=== PATIENT | male | born 1945 | race Caucasian/White ===

== ENCOUNTER 2016-03-20 18:29 | Inpatient (IN) ==
--- NOTE | 2016-03-20 19:27 | Emergency Department Note ---
Truman Cano Brittany, am scribing for, and in the presence of, Makayla Jones DO 18:53. IRobert Debra, DO, personally performed the services described in this documentation, ascribed by Vicenta Laughlin in my presence, and it is both accurate and complete [phone] . Arrival - Arrival Chief Complaint: Shortness of Breath ED Nursing Triage Note: family called for sob. pt is unable to answer questions. Mode of Arrival: Stretcher Limitations: No Limitations Source: Patient, Family, RN Notes Reviewed - History of Present Illness HPI Narrative: Patient is a 70 y/o white male presenting to the ED by EMS with c/o SOB. Per triage note, family called EMS because patient had increased SOB. At time of history and physical patient does not respond to verbal stimuli and is nonverbal , but he does respond to painful stimuli. Patient smells of both urinary and fecal incontinence. History is limited due to patient's current mental status. There is no family member present to provide further history of patient's current situation at this time. Patient has a past medical history of HTN, Anxiety Disorders, Thyroid Disorders, Lung CA, Aspiration Pneumonia, COPD, GERD , Cholecystectomy. Onset (ago): day(s) Consistency: constant Severity: mild Severity scale (1-10): 5 Allergies/Adverse Reactions: Allergies Allergy/AdvReac Type Severity Reaction Status Date / Time No Known Allergies Allergy Verified 07/09/14 07:31 Home Medications: Home Medications Medication Instructions Recorded Confirmed Type Alprazolam [Xanax] 1 mg PO TID 07/08/14 03/20/16 History Citalopram [CeleXA] 40 mg PO DAILY 07/08/14 03/20/16 History Donepezil [Aricept] 10 mg PO BEDTIME 07/08/14 03/20/16 History Levothyroxine Tab [Synthroid Tab] 150 mcg PO DAILY@0700 07/08/14 03/20/16 History Oxycodone HCl/Acetaminophen 1 each PO BID 07/08/14 03/20/16 History [Oxycodone-Acetaminophen 10-325] Potassium Chloride 20 meq PO DAILY 07/08/14 03/20/16 History Trazodone HCl 100 mg PO QPM 07/08/14 03/20/16 History Albuterol Inhaler [Proventil 2 puff INH Q6H #1 inhaler 07/11/14 03/20/16 Rx Inhaler] Quetiapine Fumarate 150 mg PO BEDTIME 04/19/15 03/20/16 History Lisinopril [Prinivil] 10 mg PO BID #60 tablet 04/22/15 03/20/16 Rx Metoprolol Tartrate Tab [Lopressor 25 mg PO BID #60 tablet 04/22/15 03/20/16 Rx Tab] amLODIPine [Norvasc] 10 mg PO DAILY #30 tablet 04/22/15 03/20/16 Rx Review of System - Review of System ROS unobtainable: due to mental status 12 point system: reviewed and no additional remarkable complaints except as stated - Review of System Respiratory: Present: respiratory distress Medical,Surgical,& Family Hx - Medical History Cardio: History of: Hypertension Psychological: History of: Anxiety Disorders Endocrine: History of: Thyroid Disorder No history of: Diabetes Mellitus (NIDDM) Respiratory: History of: COPD, Lung Cancer, Respiratory Problems (recent hospitalization for aspiration pneumonia) Gastrointestinal: History of: GERD - Surgical History Abdominal Surgeries: Surgical HX of: Cholecystectomy (2014) - Family History Family History: Reports;: Family Cancer, Family Diabetes, Family Hypertension - Social History Smoking Status: Former smoker Frequency of Alcohol Use: None Type of Drug Use: None Exam Vital Signs: Vital Signs Temperature 97.3 F L 03/20/16 18:37 Pulse Rate 92 H 03/20/16 18:37 Respiratory Rate 24 03/20/16 18:44 Blood Pressure 159/83 03/20/16 18:37 O2 Sat by Pulse Oximetry 93 L 03/20/16 18:37 - General Exam limited due to: ALOC General appearance: in no apparent distress, lethargic, other (patient is nonverbal and does not respond to verbal stimuli but, responds to painful stimuli; smells of urinary and fecal incontinence) - Head Head exam: Present: atraumatic, normocephalic - Eye Eye exam: Present: PERRL, EOMI - ENT ENT exam: Present: mucous membranes moist, TM's normal bilaterally - Neck Neck exam: Present: trachea midline. Absent: tenderness - Chest Chest inspection: Present: symmetric chest wall rise. Absent: tenderness - Respiratory Respiratory exam: Present: rales (throughout), rhonchi (bilaterally), wheezes ( expiratory). Absent: normal lung sounds bilaterally - Cardiovascular Cardiovascular exam: Present: regular rate, normal rhythm, normal heart sounds. Absent: murmur, rubs, gallop - Abdominal Exam Abdominal exam: Present: soft, normal bowel sounds. Absent: distention, tenderness - Extremities Exam Extremities exam: Absent: tenderness - Back Exam Back exam: Absent: tenderness - Neurological Exam Neurological exam: Present: CN II-XII intact. Absent: alert, oriented X3 ( patient is nonverbal, does not respond to verbal stimuli, but does respond to painful stimuli), motor sensory deficit - Skin Skin exam: Present: warm, dry, intact, normal color Course Course Narrative: spoke with DR Nevarez who will accept pt with dx of pneumonia. pts family would also like for Dr Long to be consulted re his pancreatic ca . Results - Labs CBC & BMP: 03/20/16 20:23 03/20/16 20:23 Lab Results: I have reviewed the patients labs Labs: Laboratory Tests 03/20/16 20:23 Urine Color Selina Urine Appearance Slightly hazy Urine pH 5.0 Ur Specific Stirling 1.028 Urine Protein 100 Urine Glucose (UA) Negative Urine Ketones Negative Urine Blood Moderate Urine Nitrate Negative Urine Bilirubin Negative Urine Urobilinogen 2.0 H Urine Leukocytes Negative Urine RBC 42 Urine WBC 8 Ur Squamous Epith Cells Occasional Urine Bacteria Occasional Hyaline Casts 6 Urine Mucus Occasional Laboratory Tests 03/20/16 20:23 WBC 16.3 H RBC 4.18 Hgb 12.0 L Hct 39.3 L MCV 94.0 MCH 29 MCHC 30.5 L RDW 13.7 Plt Count 187 MPV 8.6 L Neut % (Auto) 88.8 H Lymph % (Auto) 5.0 L [place] % (Auto) 4.3 Eos % (Auto) 0.0 Baso % (Auto) 0.2 Neut # (Auto) 14.5 H Lymph # (Auto) 0.8 L [place] # (Auto) 0.7 Eos # (Auto) 0.0 Baso # (Auto) 0.0 Immature Gran % 1.7 Nucleated RBC % 0.0 Immature Gran # 0.28 Nucleated RBCs # 0.00 Laboratory Tests 03/20/16 20:23 Sodium 143 Potassium 3.8 Chloride 101 Carbon Dioxide 32 Anion Gap 13.8 BUN 32 H Creatinine 1.80 H GFR Calculation 45 BUN/Creatinine Ratio 17.00 Glucose 133 H Calculated Osmolality 293.0 Calcium 8.7 Total Bilirubin 0.60 AST 14 ALT < 9 L Alkaline Phosphatase 90 Total Creatine Kinase 52 CK-MB (CK-2) 1.1 Troponin I 0.025 Total Protein 6.8 Albumin 2.6 L Globulin 4.2 H Albumin/Globulin Ratio 0.6 L - Diagnostic Findings Procedure: Chest x-ray: report reviewed by me (Cardiomediastinal silhouette appears grossly unchanged. There is chronic coarsening bialteral interstitial prominence which appears progressed. There has been interval increased bibasilar atelectasis/consolidation with small left pleural fluid suggested. Findings may reflect superimposed pneumonia or pulmonary edema upon pulmonary fibrosis. Osseous and surrounding soft tissue structures appear grossly unchanged.), CT: report reviewed by me (head/brain wo contrast: No acute intracranial abnormality demonstrated.) Disposition Clinical Impression: Pneumonia Case discussed with: patient, patient's family Disposition: Still a Patient Condition: Stable Time of Disposition: 21:50
--- NOTE | 2016-03-20 20:22 | CT Report ---
CT head/brain wo con Indication: Altered mental status Comparison: CT brain dated April 17, 2015 Technique: Multiple axial tomographic images of the brain were obtained without use of intravenous contrast. Findings: Midline structures are nondisplaced. There is no acute intracranial hemorrhage or evidence of hydrocephalus. Age-related volume loss present. Mild periventricular and subcortical hypoattenuation noted which is nonspecific but consistent with chronic microvascular ischemic change. Atherosclerotic calcifications present. Paranasal sinuses and mastoid air cells clear. IMPRESSION: No acute intracranial abnormality demonstrated. PROCEDURE INTERPRETED AT [facility] DEPARTMENT OF RADIOLOGY Final Report Signed by: Dr Moses Vaughn
--- NOTE | 2016-03-20 20:29 | XRay Report ---
XR chest 1V portable Indication: Abnormal breath sounds Comparison: Chest x-ray dated January 20, 2016 Technique: Single frontal view of the chest Findings: Cardiomediastinal silhouette appears grossly unchanged. There is chronic coarsening bilateral interstitial prominence which appears progressed. There has been interval increased bibasilar atelectasis/consolidation with small left pleural fluid suggested. Findings may reflect superimposed pneumonia or pulmonary edema upon pulmonary fibrosis. Osseous and surrounding soft tissue structures appear grossly unchanged. IMPRESSION: As above. PROCEDURE INTERPRETED AT [facility] DEPARTMENT OF RADIOLOGY Final Report Signed by: Dr Moses Vaughn
[2016-03-20 20:35] LABS: Apearance,Urine Slightly Hazy (Clear); Bacteria,Urine Occasional /HPF (Few); Bilirubin,Urine Negative (Negative); Blood, Urine Moderate mg/dL (Negative); Glucose,Urine (UA) Negative (Negative); Hyaline Casts,Urine 6 /LPF (0-3); Ketones,Urine Negative (Negative); Mucus,Urine Occasional /LPF (Occasional); Nitrite,Urine Negative (Negative); Protein,Urine 100 MG/DL; RBC,Urine 42 /HPF (0-4); Squamous Epithelial Cell,Urine Occasional /HPF (0-10); Urine Color Amber (Yellow); Urine Specific Gravity 1.028 (1.001-1.035); WBC,Urine 8 /HPF (0-6)
[2016-03-20 21:14] LABS: Basophils % 0.2 % (0.0-0.8); Hematocrit 39.3 VOL% (42.0-52.0); Immature Granulocytes % 1.7 %; Immature Granulocytes Absolute 0.28 #; Lymphocytes # 0.8 10*3/uL (1.4-4.0); Mean Corpuscular HGB Conc 30.5 GM/DL (32-36); Mean Corpuscular Hemoglobin 29 PG (27-34); Mean Platelet Volume 8.6 FL (9.6-12.0); Monocytes # 0.7 10*3/uL (0.11-0.8); Monocytes % 4.3 % (1.7-12.7); Neutrophils # 14.5 10*3/uL (1.4-7.4); Neutrophils % 88.8 % (38.7-73.9); Platelet Count 187 10*3/uL (130-400); Red Blood Count 4.18 10*6/uL (3.8-5.5); Red Cell Distribution Width 13.7 % (9.3-17.3); White Blood Count 16.3 10*3/uL (4.5-13.71)
[2016-03-20] MEDS ORDERED: cefTRIAXone 1,000 MG in SODIUM CHLORIDE 0.9% 100 ML IV STA (21:35)
[2016-03-20 21:37] LABS: Alanine Aminotransferase < 9 U/L (16-61); Albumin 2.6 G/DL (3.4-5.0); Alkaline Phosphatase 90 U/L (45-117); Aspartate Amino Transferase 14 U/L (0-37); Blood Urea Nitrogen 32 MG/DL (7-18); Calcium 8.7 MG/DL (8.5-10.1); Glucose 133 MG/DL (74-106); Potassium 3.8 MMOL/L (3.5-5.1); Sodium 143 MMOL/L (136-145); Total Protein 6.8 G/DL (6.4-8.3); Troponin I Only 0.025 NG/ML (0.00-0.045)
[2016-03-20] MEDS ORDERED: cefTRIAXone 1,000 MG VIAL ONE (21:54)
[2016-03-20] MEDS ORDERED: ONDANSETRON 4 MG/2 ML VIAL IV PRN (22:35)
[2016-03-20] MEDS ORDERED: ACETAMINOPHEN 325 MG TABLET PO PRN (22:35)
[2016-03-20] MEDS ORDERED: BISACODYL 5 MG TABLET PO PRN (22:35)
--- NOTE | 2016-03-20 22:54 | Hospitalist History & Physical ---
Assessment and Plan - Time spent with patient Time spent with patient: Greater than 30 minutes (1) Bacterial pneumonia Status: Acute Current Visit: Yes (2) COPD with acute exacerbation Status: Acute Current Visit: Yes (3) Drug-induced encephalopathy Status: Acute Current Visit: Yes (4) Acute renal failure due to tubular necrosis Status: Acute Current Visit: Yes (5) Pancreatic mass Status: Acute Current Visit: Yes (6) Chronic pain Status: Acute Current Visit: Yes (7) Opioid dependence Status: Acute Assessment and plan: Plan: 03/20: Admit for IV antibiotics for pneumonia, blood and sputum cultures. Supplemental oxygen, DuoNeb's, steroids. We'll consult pain management due to the opioid dependence and perhaps misuse of his fentanyl patches resulting in extreme somnolence. Gentle hydration, recheck renal function in the morning. Current Visit: Yes History of Present Illness Chief complaint: today's a productive cough and subjective fever History of present illness: Mr. Hogan is a 70 year old male with history of piriform sinus cancer, recent discovery of pancreatic abdominal mass of which biopsy was inconclusive. Apparently he is scheduled for a CT-guided needle biopsy, however the patient's is considering canceling this for some reason. The problem tonight because of 2 days of progressively worsening productive cough and shortness of breath. He also likely had drug-induced encephalopathy due to opiates as he was wearing a fentanyl patch and required Narcan due to extreme somnolence. He is now awake at the bedside, appears fairly comfortable on 2 L nasal cannula. He denies nausea or vomiting, he does have chronic abdominal pain according to the who answers most of these questions. She states the patient has dementia, the patient is a bit of a poor historian. His symptoms have become constant and worsening the last 2 days. Home Medications Medication Instructions Recorded Confirmed Type Alprazolam [Xanax] 1 mg PO TID 07/08/14 03/21/16 History Citalopram [CeleXA] 40 mg PO DAILY 07/08/14 03/21/16 History Donepezil [Aricept] 10 mg PO BEDTIME 07/08/14 03/21/16 History Albuterol Inhaler [Proventil 2 puff INH Q6H #1 inhaler 07/11/14 03/21/16 Rx Inhaler] Levothyroxine Tab [Synthroid Tab] 112 mcg PO DAILY@0700 03/21/16 03/21/16 History Oxycodone HCl/Acetaminophen 1 each PO BID 03/21/16 03/21/16 History [Percocet 10-325 mg Tablet] amLODIPine [Norvasc] 5 mg PO DAILY 03/21/16 03/21/16 History fentaNYL [Fentanyl 100 mcg/hr 1 patch TRANSDERM Q3DAY 03/21/16 03/21/16 History Patch] Allergies Allergy/AdvReac Type Severity Reaction Status Date / Time No Known Allergies Allergy Verified 07/09/14 07:31 Medical,Surgical,& Family Hx - Medical History Cardio: History of: Hypertension Psychological: History of: Anxiety Disorders HEENT: History of: HEENT Problems (piriform sinus cancer history) Endocrine: History of: Thyroid Disorder No history of: Diabetes Mellitus (NIDDM) Respiratory: History of: COPD, Lung Cancer, Respiratory Problems (recent hospitalization for aspiration pneumonia) Gastrointestinal: History of: GERD Other: History of: Miscellaneous Medical Problems (chronic pain, opioid dependence) - Surgical History Abdominal Surgeries: Surgical HX of: Cholecystectomy (2014) - Family History Family History: Reports;: Family Cancer, Family Diabetes, Family Hypertension - Social History Smoking Status: Former smoker Frequency of Alcohol Use: None Type of Drug Use: None Marital Status: Lives With:: Spouse Functional capacity: independent ambulation Review of systems: A 12 point review of systems is negative except as specified in the HPI Exam - Constitutional Vitals: Period Temp Pulse Resp BP Sys/Carty Pulse Ox Last 24 Hr 97.3 F-97.3 F 92-92 24-24 159-159/83-83 93 Exam: EXAM: CONSTITUTIONAL: Thin, non toxic, NAD HEENT: NC, AT, OP benign, MARK, EOMI CV: RRR no m/g/r RESP: Coarse bilaterally with diffuse rhonchi, prolonged expiratory phase GI: abd soft, NT, ND, +bowel sounds INTEGUMENTARY: no lesions or rash EXTREMITIES: no c/c/e NEURO: no focal deficits PSYCH: Drowsy but arousable, disoriented Results - Labs CBC & BMP: 03/20/16 20:23 03/20/16 20:23 Lab Results: I have reviewed the past 24 hour labs - Diagnostic Findings Procedure: Chest x-ray: image reviewed by me, report reviewed by me, CT: image reviewed by me, report reviewed by me
[2016-03-20] MEDS ORDERED: SODIUM CHLORIDE 0.45% 1,000 ML IV SCH (23:00)
[2016-03-21] MEDS: methylPREDNISolone SOD SUC 40 MG/1 ML VIAL IV SCH ×3 (00:19→16:24)
[2016-03-21] MEDS: ENOXAPARIN 40 MG/0.4 ML SYRINGE SUBCUT SCH ×2 (00:19→20:54)
[2016-03-21] MEDS: PIPERACILLIN/TAZOBACTAM 3,375 MG in SODIUM CHLORIDE 0.9% 100 ML IV SCH ×3 (00:19→16:24)
[2016-03-21] MEDS: DONEPEZIL 10 MG TABLET PO SCH ×2 (00:19→20:54)
[2016-03-21] MEDS: ALPRAZolam 0.5 MG TABLET PO PRN ×2 (00:40→21:00)
[2016-03-21] MEDS: ALBUTEROL/IPRATROPIUM 3 ML NEB RESP TX SCH ×6 (00:47→20:40)
[2016-03-21 05:12] LABS: Basophils % 0.2 % (0.0-0.8); Hematocrit 35.2 VOL% (42.0-52.0); Hemoglobin 10.8 GM/DL (14.0-18.0); Immature Granulocytes % 1.7 %; Lymphocytes # 0.9 10*3/uL (1.4-4.0); Lymphocytes % 5.4 % (21.2-54.2); Mean Corpuscular HGB Conc 30.7 GM/DL (32-36); Mean Corpuscular Hemoglobin 29 PG (27-34); Mean Corpuscular Volume 92.9 FL (87-102); Mean Platelet Volume 8.9 FL (9.6-12.0); Monocytes # 0.2 10*3/uL (0.11-0.8); Monocytes % 1.4 % (1.7-12.7); Neutrophils # 15.9 10*3/uL (1.4-7.4); Neutrophils % 91.3 % (38.7-73.9); Platelet Count 197 10*3/uL (130-400); Red Blood Count 3.79 10*6/uL (3.8-5.5); Red Cell Distribution Width 13.6 % (9.3-17.3); White Blood Count 17.4 10*3/uL (4.5-13.71)
[2016-03-21 05:44] LABS: Band Neutrophils 6 % (0-10); Hypochromasia 1+; Lymphocytes 3 % (20-55); Metamyelocytes 1 %; Platelet Estimate Adequate; Segmented Neutrophils 89 % (50-85); Total Cells Counted 100
[2016-03-21 06:08] LABS: Alanine Aminotransferase < 9 U/L (16-61); Albumin 2.4 G/DL (3.4-5.0); Alkaline Phosphatase 84 U/L (45-117); Aspartate Amino Transferase 13 U/L (0-37); Blood Urea Nitrogen 29 MG/DL (7-18); Calcium 8.5 MG/DL (8.5-10.1); Glucose 148 MG/DL (74-106); Magnesium 2.4 MG/DL (1.8-2.4); Osmolality,Calculated 289.3 MOS/KG (273-304); Potassium 4.1 MMOL/L (3.5-5.1); Sodium 141 MMOL/L (136-145); Total Protein 6.2 G/DL (6.4-8.3)
--- NOTE | 2016-03-21 06:42 | Pain Management Consult Note ---
Assessment and Plan (1) Chronic pain Status: Acute Assessment and plan: I agree with the current plan to stop the Duragesic patch and use Percocet twice a day when necessary Current Visit: Yes History of Present Illness Chief complaint: patient with pneumonia History of present illness: Mr. Hogan is a 70 year old male Patient well known to me have seen him in the pain clinic in [place]. He' s been treated for possible cancer which is being investigated. He is on the Duragesic patch and also takes Percocet when necessary. I have had multiple times in which I have warned the patient and his family not to over take the medications his consistently gives him too much Percocet against my advice. Apparently yesterday he seemed to be oversedated and had to be given Narcan. The Duragesic patch has been stopped and I agree with that and I agreed to use the Percocet only as needed Home Medications Medication Instructions Recorded Confirmed Type Alprazolam [Xanax] 1 mg PO TID 07/08/14 03/21/16 History Citalopram [CeleXA] 40 mg PO DAILY 07/08/14 03/21/16 History Donepezil [Aricept] 10 mg PO BEDTIME 07/08/14 03/21/16 History Albuterol Inhaler [Proventil 2 puff INH Q6H #1 inhaler 07/11/14 03/21/16 Rx Inhaler] Levothyroxine Tab [Synthroid Tab] 112 mcg PO DAILY@0700 03/21/16 03/21/16 History Oxycodone HCl/Acetaminophen 1 each PO BID 03/21/16 03/21/16 History [Percocet 10-325 mg Tablet] amLODIPine [Norvasc] 5 mg PO DAILY 03/21/16 03/21/16 History fentaNYL [Fentanyl 100 mcg/hr 1 patch TRANSDERM Q3DAY 03/21/16 03/21/16 History Patch] Allergies Allergy/AdvReac Type Severity Reaction Status Date / Time No Known Allergies Allergy Verified 07/09/14 07:31 Medical,Surgical,& Family Hx - Medical History Cardio: History of: Hypertension Psychological: History of: Anxiety Disorders HEENT: History of: HEENT Problems (piriform sinus cancer history) Endocrine: History of: Thyroid Disorder No history of: Diabetes Mellitus (NIDDM) Respiratory: History of: COPD, Lung Cancer, Respiratory Problems (recent hospitalization for aspiration pneumonia) Gastrointestinal: History of: GERD Other: History of: Miscellaneous Medical Problems (chronic pain, opioid dependence) - Surgical History Abdominal Surgeries: Surgical HX of: Cholecystectomy (2015) - Family History Family History: Reports;: Family Cancer, Family Diabetes, Family Hypertension - Social History Smoking Status: Former smoker Frequency of Alcohol Use: None Type of Drug Use: None 12 point system: reviewed and no additional remarkable complaints except as stated - Constitutional Constitutional: Present: daytime sleepiness - EENT Nose, mouth and throat: Present: hoarseness - Cardiovascular Cardiovascular: Present: dyspnea - Respiratory Respiratory: Present: cough, dyspnea - Gastrointestinal Gastrointestinal: Present: abdominal pain - Genitourinary Genitourinary: Present: difficulty urinating - Musculoskeletal Musculoskeletal: Present: abnormal gait - Neurological Neurological: Present: abnormal speech - Endocrine Endocrine: Present: fatigue Hematologic/Lymphatic: Present: as per HPI Exam - Constitutional Vitals: Period Temp Pulse Resp BP Sys/Carty Pulse Ox Last 24 Hr 97.5 F-98 F 65-85 16-20 153-160/69-83 94-98 General appearance: no acute distress - Head Head exam: Present: normal inspection - Eye Eye exam: Present: EOMI Pupils: Present: MARK - ENT ENT exam: Present: normal exam Ear exam: Present: [place] Mouth exam: Present: normal external inspection - Neck Neck exam: Present: normal inspection - Respiratory Respiratory exam: Present: accessory muscle use, chest wall tenderness, decreased breath sounds - Cardiovascular Cardiovascular exam: Present: RRR - GI/Abdominal GI/Abdominal exam: Present: soft - Extremities Exam Extremities exam: Present: normal inspection - Back Exam Back exam: Present: vertebral tenderness - Neurological Exam Neurological exam: Present: abnormal gait Speech: Present: abnormal - Skin Skin exam: Present: dry Results - Labs CBC & BMP: 03/21/16 04:36 03/21/16 04:36 Lab Results: I have reviewed the past 24 hour labs Specialty Discharge - Follow Up or Referrals - Discharge Medications No Action Donepezil [Aricept] 10 mg PO BEDTIME Citalopram [CeleXA] 40 mg PO DAILY Alprazolam [Xanax] 1 mg PO TID Albuterol Inhaler [Proventil Inhaler] 2 puff INH Q6H #1 inhaler fentaNYL [Fentanyl 100 mcg/hr Patch] 1 patch TRANSDERM Q3DAY Levothyroxine Tab [Synthroid Tab] 112 mcg PO DAILY@0700 Oxycodone HCl/Acetaminophen [Percocet 10-325 mg Tablet] 1 each PO BID amLODIPine [Norvasc] 5 mg PO DAILY
[2016-03-21] MEDS: CITALOPRAM 40 MG TABLET PO SCH (08:37)
[2016-03-21] MEDS: PANTOPRAZOLE 40 MG TABLET PO SCH (08:38)
[2016-03-21] MEDS: oxyCODONE/ACETAMINOPHEN 5-325 MG TABLET PO SCH ×2 (08:38→20:54)
[2016-03-21] MEDS: LEVOTHYROXINE 150 MCG TABLET PO SCH (08:38)
--- NOTE | 2016-03-21 08:43 | Physician Query Form ---
CLICK EDIT DOCUMENT TO SELECT QUERY ANSWER --> OK --> SIGN Carolyne Kim RN, CCDS Certified Clinical Veterans Employment Representative W) [phone] (f) [phone] [email or web address]: Make your selection(s) from the choices in EACH section by typing an "x" and enter comments in the comment section. Please use your independent medical judgment in providing your response. This request does not imply that any particular answer is desired or expected. CLINICAL INDICATORS: (Providers should not edit this section) The medical record indicates that the patient was admitted with Pneumonia, Oversedated on medications, WBC of 16.3#, RR of 24#, Sat's of 93%, "patient is nonverbal and does not respond to verbal stimuli but", "smells of urinary and fecal incontinence", "rales (throughout), rhonchi (bilaterally), wheezes ( expiratory)" and the patient is on Piperacillin. Community Acquired and Healthcare Acquired are both unspecified terms and require further specificity. Based on the above, could you please clarify further specificity regarding the type of pneumonia you are treating (even if specific organism may not be known) ? (x ) Aspiration pneumonia ( ) Gram negative pneumonia ( ) Gram positive pneumonia ( ) Bacterial pneumonia due to, please specify organism (if known): ( ) Pneumonia with Influenza ( ) Viral pneumonia ( ) Post procedural ( ) HIV associated pneumonia ( ) Radiation Pneumonitis ( ) Pneumonia due to, please specify: ( ) Clinically unable to determine ( ) Other, please specify: COMMENTS: Use of terms such as suspected, likely, or probable (associated with a specific diagnosis that is being evaluated, monitored, or treated as if it exists) are acceptable and can be restated in the discharge summary if not ruled out. MTDD
[2016-03-21 10:48] LABS: INR 1.2; PT Patient Result 12.7 SECS; Partial Thromboplastin Time 31.1 SECS (0-40)
--- NOTE | 2016-03-21 10:58 | Hospitalist Progress Note ---
Assessment and Plan - Time spent with patient Time spent with patient: Greater than 30 minutes (due to assessment, plan and documentation) (1) Pneumonia Status: Acute Assessment and plan: We will continue his IV antibiotics, supplemental O2 and Duonebs. Dr. Lovelace has agreed with stopping his Duragesic patches and limit his PO percocets Current Visit: Yes Hospitalist: Subjective Interval history: Mr. Hogan is awake and alert this morning and states he is feeling well. He states he feels better today than he has for a while. His is not present today. He states he is still having frequent productive coughing but that it feels better after his treatments and seems to be coming up more. His lungs are still coarse bilat. Noted greenish brown sputum production with cough. Pain management has seen him this morning. He denies abdominal pain today. Exam - Constitutional Vitals: Period Temp Pulse Resp BP Sys/Carty Pulse Ox Last 24 Hr 97.5 F-98.2 F 53-85 16-20 153-160/69-83 93-98 General appearance: no acute distress - Head Head exam: Present: normal inspection, normocephalic - Eye Eye exam: Present: EOMI. Absent: scleral icterus Pupils: Present: MARK, normal accommodation - ENT ENT exam: Present: normal exam, normal oropharynx - Neck Neck exam: Present: normal inspection. Absent: lymphadenopathy - Respiratory Respiratory exam: Present: decreased breath sounds, wheezes (tight high pitched wheeze on ins and exp), other (coarse, wet bilat, worse right lung than left) - Cardiovascular Cardiovascular exam: Present: regular rate and rhythm. Absent: tachycardia - GI/Abdominal GI/Abdominal exam: Present: normal bowel sounds, soft. Absent: tenderness - Extremities Exam Extremities exam: Present: normal inspection, full ROM. Absent: edema - Back Exam Back exam: Present: normal inspection. Absent: muscle spasm - Neurological Exam Neurological exam: Present: alert, oriented X3 - Psychiatric Psychiatric exam: Present: normal affect, normal mood - Skin Skin exam: Present: warm, dry, other (pale) Results - Labs CBC & BMP: 03/21/16 04:36 03/21/16 04:36 Lab Results: I have reviewed the past 24 hour labs Specialty Discharge - Follow Up or Referrals - Discharge Medications No Action Donepezil [Aricept] 10 mg PO BEDTIME Citalopram [CeleXA] 40 mg PO DAILY Alprazolam [Xanax] 1 mg PO TID Albuterol Inhaler [Proventil Inhaler] 2 puff INH Q6H #1 inhaler fentaNYL [Fentanyl 100 mcg/hr Patch] 1 patch TRANSDERM Q3DAY Levothyroxine Tab [Synthroid Tab] 112 mcg PO DAILY@0700 Oxycodone HCl/Acetaminophen [Percocet 10-325 mg Tablet] 1 each PO BID amLODIPine [Norvasc] 5 mg PO DAILY
[2016-03-21] MEDS ORDERED: QUEtiapine 100 MG TABLET PO SCH (21:00)
[2016-03-21] MEDS: MORPHINE 2 MG/1 ML SYRINGE IV PRN (23:54)
[2016-03-22] MEDS: ALBUTEROL/IPRATROPIUM 3 ML NEB RESP TX SCH ×7 (00:13→23:24)
[2016-03-22] MEDS: PIPERACILLIN/TAZOBACTAM 3,375 MG in SODIUM CHLORIDE 0.9% 100 ML IV SCH ×3 (00:38→17:39)
[2016-03-22] MEDS: methylPREDNISolone SOD SUC 40 MG/1 ML VIAL IV SCH ×3 (00:38→17:39)
[2016-03-22] MEDS: MORPHINE 2 MG/1 ML SYRINGE IV PRN ×3 (04:28→17:39)
--- NOTE | 2016-03-22 06:04 | Pain Management Progress Note ---
Assessment and Plan (1) Chronic pain Status: Acute Assessment and plan: I agree with the current plan to stop the Duragesic patch and use Percocet twice a day when necessary 03/22 increase Percocet to 3 times a day Current Visit: Yes Pain - Subjective Interval history: Patient is more awake and alert today. The patient's is insistent that he needs more Percocet. He is also been receiving IV morphine. Have explained to her that I have warned her multiple times about not over sedating him but she does not seem to understand that issue this was discussed in detail in the presence of his nurse. I will increase the Percocet to 3 times a day Exam - Constitutional Vitals: Period Temp Pulse Resp BP Sys/Carty Pulse Ox Last 24 Hr 97.0 F-98.2 F 50-94 16-20 120-159/60-82 91-99 General appearance: no acute distress - Head Head exam: Present: normal inspection - Eye Eye exam: Present: EOMI Pupils: Present: MARK - ENT ENT exam: Present: normal exam Ear exam: Present: [place] Mouth exam: Present: normal external inspection - Neck Neck exam: Present: normal inspection - Respiratory Respiratory exam: Present: decreased breath sounds - GI/Abdominal GI/Abdominal exam: Present: normal bowel sounds - Back Exam Back exam: Present: vertebral tenderness - Neurological Exam Speech: Present: abnormal - Skin Skin exam: Present: normal color Results - Labs CBC & BMP: 03/21/16 04:36 03/21/16 04:36 Lab Results: I have reviewed the past 24 hour labs Specialty Discharge - Follow Up or Referrals - Discharge Medications No Action Donepezil [Aricept] 10 mg PO BEDTIME Citalopram [CeleXA] 40 mg PO DAILY Alprazolam [Xanax] 1 mg PO TID Albuterol Inhaler [Proventil Inhaler] 2 puff INH Q6H #1 inhaler fentaNYL [Fentanyl 100 mcg/hr Patch] 1 patch TRANSDERM Q3DAY Levothyroxine Tab [Synthroid Tab] 112 mcg PO DAILY@0700 Oxycodone HCl/Acetaminophen [Percocet 10-325 mg Tablet] 1 each PO BID amLODIPine [Norvasc] 5 mg PO DAILY
[2016-03-22 06:20] LABS: Basophils % 0.1 % (0.0-0.8); Hematocrit 37.3 VOL% (42.0-52.0); Immature Granulocytes % 2.8 %; Immature Granulocytes Absolute 0.36 #; Lymphocytes # 0.8 10*3/uL (1.4-4.0); Mean Corpuscular HGB Conc 32.2 GM/DL (32-36); Mean Corpuscular Hemoglobin 29 PG (27-34); Mean Corpuscular Volume 89.2 FL (87-102); Mean Platelet Volume 8.9 FL (9.6-12.0); Monocytes # 0.4 10*3/uL (0.11-0.8); Monocytes % 2.8 % (1.7-12.7); Neutrophils # 11.5 10*3/uL (1.4-7.4); Neutrophils % 88.3 % (38.7-73.9); Platelet Count 195 10*3/uL (130-400); Red Blood Count 4.18 10*6/uL (3.8-5.5); Red Cell Distribution Width 13.4 % (9.3-17.3); White Blood Count 13.1 10*3/uL (4.5-13.71)
[2016-03-22] MEDS: LEVOTHYROXINE 150 MCG TABLET PO SCH (06:34)
[2016-03-22] MEDS: NIFEdipine 10 MG CAPSULE PO PRN ×2 (06:37→23:54)
--- NOTE | 2016-03-22 06:53 | Pulmonology Consult Note ---
Assessment and Plan (1) COPD with acute exacerbation Status: Acute Assessment and plan: Patient is on antibiotics corticosteroids and bronchodilators. He has a poor cough. Current Visit: No (2) Aspiration pneumonia Status: Resolved Assessment and plan: It is likely that he has aspiration pneumonia. We'll plan bronchoscopy later this morning. Current Visit: No (3) Drug-induced encephalopathy Status: Acute Assessment and plan: Due to opiates. These are being held. His symptoms improved when given Narcan earlier. Current Visit: Yes (4) Pancreatic mass Status: Acute Assessment and plan: This remains to be worked up. Suspicious for carcinoma. Current Visit: Yes (5) Opioid dependence Status: Acute Assessment and plan: Defer to primary service. Current Visit: Yes History of Present Illness Chief complaint: cough congestion shortness of breath History of present illness: Mr. Hogan is a 70 year old male who was admitted 2 days ago with a cough and shortness of breath. He has a history of encephalopathy probably related to pain medications. He was found to have pneumonia and was felt to be likely due to aspiration. He has retained secretions and has not been able to cough them up. 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 I was asked to see him because of persistent cough and inability to cough up phlegm. I actually saw him yesterday evening. He also has a history of COPD and previous lung cancer. Home Medications Medication Instructions Recorded Confirmed Type Alprazolam [Xanax] 1 mg PO TID 07/08/14 03/21/16 History Citalopram [CeleXA] 40 mg PO DAILY 07/08/14 03/21/16 History Donepezil [Aricept] 10 mg PO BEDTIME 07/08/14 03/21/16 History Albuterol Inhaler [Proventil 2 puff INH Q6H #1 inhaler 07/11/14 03/21/16 Rx Inhaler] Levothyroxine Tab [Synthroid Tab] 112 mcg PO DAILY@0700 03/21/16 03/21/16 History Oxycodone HCl/Acetaminophen 1 each PO BID 03/21/16 03/21/16 History [Percocet 10-325 mg Tablet] amLODIPine [Norvasc] 5 mg PO DAILY 03/21/16 03/21/16 History fentaNYL [Fentanyl 100 mcg/hr 1 patch TRANSDERM Q3DAY 03/21/16 03/21/16 History Patch] Allergies Allergy/AdvReac Type Severity Reaction Status Date / Time No Known Allergies Allergy Verified 07/09/14 07:31 12 point system: reviewed and no additional remarkable complaints except as stated - Constitutional Constitutional: Present: fever(s), lethargy, weakness - Cardiovascular Cardiovascular: Present: dyspnea - Respiratory Respiratory: Present: cough, dyspnea, wheezing, change in phlegm color Exam (Pulmonay) H&P - Constitutional Vitals: Period Temp Pulse Resp BP Sys/Carty Pulse Ox Last 24 Hr 97.0 F-98.2 F 50-94 16-20 120-225/60-99 91-99 Exam: Patient is responsive although somewhat sleepy. Vital signs normal. HEENT: Pupils react to light. Throat clear. Neck supple no bruits. Chest reveals some coarse rhonchi bilaterally. Does have prolonged expiratory phase. Few scattered wheezes and rhonchi. Heart rate and rhythm no murmurs or rubs. Abdomen is soft nontender no masses. Bowel sounds present. Extremities no clubbing cyanosis or edema. Calves nontender. Medical,Surgical,& Family Hx - Medical History Cardio: History of: Hypertension Psychological: History of: Anxiety Disorders HEENT: History of: HEENT Problems (piriform sinus cancer history) Endocrine: History of: Thyroid Disorder No history of: Diabetes Mellitus (NIDDM) Respiratory: History of: COPD, Lung Cancer, Respiratory Problems (recent hospitalization for aspiration pneumonia) Gastrointestinal: History of: GERD Other: History of: Miscellaneous Medical Problems (chronic pain, opioid dependence) - Surgical History Abdominal Surgeries: Surgical HX of: Cholecystectomy (2014) - Family History Family History: Reports;: Family Cancer, Family Diabetes, Family Hypertension - Social History Smoking Status: Former smoker Frequency of Alcohol Use: None Type of Drug Use: None Results - Labs CBC & BMP: 03/22/16 05:45 03/21/16 04:36 Lab Results: I have reviewed the past 24 hour labs - Diagnostic Findings Procedure: Chest x-ray: image reviewed by me (chest x-ray from 03/20/2016 shows diffuse infiltrates primarily on the right side. This looks a little worse than his previous film about 2 months back.) Specialty Discharge - Follow Up or Referrals - Discharge Medications No Action Donepezil [Aricept] 10 mg PO BEDTIME Citalopram [CeleXA] 40 mg PO DAILY Alprazolam [Xanax] 1 mg PO TID Albuterol Inhaler [Proventil Inhaler] 2 puff INH Q6H #1 inhaler fentaNYL [Fentanyl 100 mcg/hr Patch] 1 patch TRANSDERM Q3DAY Levothyroxine Tab [Synthroid Tab] 112 mcg PO DAILY@0700 Oxycodone HCl/Acetaminophen [Percocet 10-325 mg Tablet] 1 each PO BID amLODIPine [Norvasc] 5 mg PO DAILY
[2016-03-22 06:54] LABS: Alanine Aminotransferase < 9 U/L (16-61); Albumin 2.3 G/DL (3.4-5.0); Alkaline Phosphatase 82 U/L (45-117); Aspartate Amino Transferase 13 U/L (0-37); Blood Urea Nitrogen 25 MG/DL (7-18); Calcium 8.8 MG/DL (8.5-10.1); Glucose 193 MG/DL (74-106); Magnesium 2.2 MG/DL (1.8-2.4); Osmolality,Calculated 283.7 MOS/KG (273-304); Potassium 3.9 MMOL/L (3.5-5.1); Sodium 138 MMOL/L (136-145); Total Protein 6.5 G/DL (6.4-8.3)
[2016-03-22] MEDS ORDERED: MEPERIDINE 50 MG/1 ML VIAL IM ONE (07:30)
[2016-03-22] MEDS ORDERED: PROMETHAZINE 25 MG/1 ML VIAL IM ONE (07:30)
[2016-03-22] MEDS ORDERED: LIDOCAINE 1% 20 ML VIAL MISC INJ ONE (08:00)
[2016-03-22] MEDS ORDERED: MIDAZOLAM 2 MG/2 ML VIAL IV ONE (08:00)
--- NOTE | 2016-03-22 08:29 | Operative Note ---
Date of procedure: 03/22/16 (fiberoptic bronchoscopy with removal of retained secretions) Pre-op diagnosis: aspiration pneumonia Post-op diagnosis: same (aspiration pneumonia with diffuse erythema and retained secretions. Surgical absence of left upper lobe) Procedure: The patient was given preoperative medication on the floor. He was transported to the bronchoscopy lab. After an appropriate timeout to be sure we were dealing with Misha Hogan, topical anesthesia was applied with Xylocaine in the nose and nasopharynx. 3 L nasal oxygen placed in the left naris. 2 mg of Versed was given intravenously. The fiberoptic bronchoscope was introduced via the right naris. Vocal cords were identified and noted to function normally with phonation. There was diffuse erythema of the larynx. After further topical anesthesia the trachea was entered. The tracheal wall was read throughout. The john was sharp. Both mainstem bronchi were erythematous. There were retained secretions in all 5 lobes. The left upper lobe was noted to be surgically absent so there was just a small amount there. Clips were noted there. Patient has had a previous left upper lobectomy for lung cancer. Welled up secretions were noted in the left lower lobe right lower lobe right middle lobe and right upper lobe. These were irrigated and removed. Cultures were sent as well as cytology. Procedure was tolerated well. Bronchoscope was removed and the patient returned to his room in stable condition. Anesthesia: conscious sedation Surgeon / Physician: Josafat Roberts Estimated blood loss: none Specimens: other (bronchial washings for cultures, AFB, fungi, and cytology. Also photographs.) Condition: stable Disposition: floor Results - Labs CBC & BMP: 03/22/16 05:45 03/22/16 05:45 Discharge Plan - Discharge Medications No Action Donepezil [Aricept] 10 mg PO BEDTIME Citalopram [CeleXA] 40 mg PO DAILY Alprazolam [Xanax] 1 mg PO TID Albuterol Inhaler [Proventil Inhaler] 2 puff INH Q6H #1 inhaler fentaNYL [Fentanyl 100 mcg/hr Patch] 1 patch TRANSDERM Q3DAY Levothyroxine Tab [Synthroid Tab] 112 mcg PO DAILY@0700 Oxycodone HCl/Acetaminophen [Percocet 10-325 mg Tablet] 1 each PO BID amLODIPine [Norvasc] 5 mg PO DAILY - Follow Up or Referral - Forms/Instructions
--- NOTE | 2016-03-22 09:14 | Event Note ---
I discussed the case with patient's . 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 She requested that we get Dr. Long to see the patient. Patient has had a biopsy of his pancreas at [facility] with negative results. Needs further evaluation once he is over this acute pneumonia.
[2016-03-22] MEDS ORDERED: MIDAZOLAM 2 MG/2 ML VIAL ONE (10:22)
[2016-03-22] MEDS: oxyCODONE/ACETAMINOPHEN 5-325 MG TABLET PO SCH ×2 (10:41→21:11)
[2016-03-22] MEDS: CITALOPRAM 40 MG TABLET PO SCH (10:41)
[2016-03-22] MEDS: PANTOPRAZOLE 40 MG TABLET PO SCH (10:41)
[2016-03-22] MEDS: ALPRAZolam 0.5 MG TABLET PO PRN ×2 (10:41→17:39)
--- NOTE | 2016-03-22 16:59 | Hospitalist Progress Note ---
Assessment and Plan (1) Dysphagia causing pulmonary aspiration with swallowing Status: Chronic Assessment and plan: The patient is in the hospital with pneumonia and continues on appropriate antibiotic treatment. It is possible he'll be ready for discharge home in a day or so. Were awaiting for consultation with Dr. Benedict concerning his various malignancies including history of piriform sinus cancer, pancreatic mass , and lung cancer. Current Visit: No (2) COPD with acute exacerbation Status: Acute Current Visit: No (3) Aspiration pneumonia Status: Resolved Current Visit: No Hospitalist: Subjective Interval history: Mr. Hogan was admitted to the hospital with pneumonia. He had bronchoscopy today with Dr. Roberts. Some abnormalities were found in the piriform sinus. I discussed the findings with Dr. Long who has agreed to reevaluate the patient. Exam - Constitutional Vitals: Period Temp Pulse Resp BP Sys/Carty Pulse Ox Last 24 Hr 97.3 F-97.8 F 61-97 12-21 120-225/69-104 90-99 General appearance: mild distress, under weight - Head Head exam: Present: normocephalic - Respiratory Respiratory exam: Present: prolonged expiratory phase - Cardiovascular Cardiovascular exam: Present: regular rate and rhythm - GI/Abdominal GI/Abdominal exam: Present: normal bowel sounds Results - Labs CBC & BMP: 03/22/16 05:45 03/22/16 05:45 Lab Results: I have reviewed the past 24 hour labs
[2016-03-22] MEDS: DONEPEZIL 10 MG TABLET PO SCH (21:11)
[2016-03-22] MEDS: ENOXAPARIN 40 MG/0.4 ML SYRINGE SUBCUT SCH (21:11)
[2016-03-23] MEDS: PIPERACILLIN/TAZOBACTAM 3,375 MG in SODIUM CHLORIDE 0.9% 100 ML IV SCH ×3 (01:20→16:26)
[2016-03-23] MEDS: ALPRAZolam 0.5 MG TABLET PO PRN ×3 (01:26→21:31)
[2016-03-23] MEDS: methylPREDNISolone SOD SUC 40 MG/1 ML VIAL IV SCH ×3 (01:30→10:46)
[2016-03-23] MEDS: oxyCODONE/ACETAMINOPHEN 5-325 MG TABLET PO PRN (01:49)
[2016-03-23] MEDS: ALBUTEROL/IPRATROPIUM 3 ML NEB RESP TX SCH ×6 (03:11→23:36)
[2016-03-23] MEDS: MORPHINE 2 MG/1 ML SYRINGE IV PRN ×3 (05:26→16:26)
--- NOTE | 2016-03-23 06:00 | Pain Management Progress Note ---
Assessment and Plan (1) Chronic pain Status: Acute Assessment and plan: I agree with the current plan to stop the Duragesic patch and use Percocet twice a day when necessary 03/22 increase Percocet to 3 times a day 03/23 I believe he can be discharged to home and with instructions to not use the Duragesic patch and use Percocet 33-4 times a day only when necessary for pain patient will keep scheduled appointment with me in pain clinic in [facility] Current Visit: Yes Pain - Subjective Interval history: Patient feels much better this morning he is awake alert and conversational in a normal fashion. Patient reports he is ready for discharge to home Exam - Constitutional Vitals: Period Temp Pulse Resp BP Sys/Carty Pulse Ox Last 24 Hr 97.2 F-98 F 73-97 12-24 138-209/80-120 90-99 General appearance: normal weight - Head Head exam: Present: normal inspection - Eye Eye exam: Present: EOMI Pupils: Present: MARK - ENT ENT exam: Present: normal exam Ear exam: Present: [place] Mouth exam: Present: normal external inspection - Neck Neck exam: Present: normal inspection - Respiratory Respiratory exam: Present: decreased breath sounds - Cardiovascular Cardiovascular exam: Present: RRR - GI/Abdominal GI/Abdominal exam: Present: tenderness - Extremities Exam Extremities exam: Present: normal inspection - Back Exam Back exam: Present: vertebral tenderness - Neurological Exam Neurological exam: Present: alert - Skin Skin exam: Present: normal color Results - Labs CBC & BMP: 03/22/16 05:45 03/22/16 05:45 Lab Results: I have reviewed the past 24 hour labs
[2016-03-23] MEDS: NIFEdipine 10 MG CAPSULE PO PRN (06:06)
[2016-03-23] MEDS: LEVOTHYROXINE 150 MCG TABLET PO SCH (06:06)
[2016-03-23] MEDS: CITALOPRAM 40 MG TABLET PO SCH (09:02)
[2016-03-23] MEDS: PANTOPRAZOLE 40 MG TABLET PO SCH (09:02)
[2016-03-23] MEDS: oxyCODONE/ACETAMINOPHEN 5-325 MG TABLET PO SCH ×2 (09:02→21:30)
--- NOTE | 2016-03-23 09:05 | Oncology Consult Note ---
History of Present Illness History of present illness: Mr. Hogan is a 70 year old male that I last saw June 06, 2001. 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 He was treated with sauk-suiattle and 5-FU and with radiation therapy. Apparently it worked. I do remember that the patient was complaining of a lot of pain at that time but also suspected that he was either overusing narcotics or had a low pain threshold. He was lost to follow-up by me at that time. He failed to keep any follow-up appointments. He was admitted on March 20 with various pain complaints. I was consulted yesterday. I was unaware of the fact that this patient was diagnosed as having carcinoma of the lung in 2002. It was located in his left lung apex and it was resected. It was apparently stage I. The patient is having a lot of complaints of pain. He has been managed by pain experts for quite some time now. I do not intend to intercede in his pain management because a lot of it is due to causes other than the malignancy. In addition, we need records from his other hospitalizations and we need records concerning his GI workup. Evidently this is been going on in [place] but I am not absolutely certain. He also has been found to have an area of abnormality on his larynx when he underwent bronchoscopy. This needs to be evaluated by ENT either here or by his previous ENT doctors. We also need to consider the fact that this man has had previous documented cancer of the head and neck, lung cancer and now probably has pancreatic cancer and that he is severely debilitated and I am not even sure he could tolerate palliative chemotherapy. Physical examination: General: The patient appears chronically ill and severely debilitated. Eyes: Normal lids and conjunctivae. ENT: Poor dentition. His trachea is midline and he has no neck masses. His thyroid appears normal. Pulmonary: Breath sounds are coarse throughout without rubs, rales or rhonchi. There is symmetrical unlabored chest motion with respiration. Cardiovascular: His heart rhythm is regular without murmur, gallop or rub. There is no jugular venous distention, clubbing or cyanosis. Abdomen: He has surprisingly nontender. There is some epigastric tenderness. I find no definite organomegaly or masses. Little ascites or distention. Musculoskeletal: Generalized muscle weakness without focal muscle atrophy or bone or joint deformity. Neurologic: Cranial nerves II through XII are intact. I see no obvious focal neurologic deficits. Nodes: I find no cervical, supraclavicular, axillary or submandibular adenopathy. We really need a tissue diagnosis. He has had most of his care elsewhere and he has started evaluation for his abdominal mass elsewhere. I would really recommend that he continue follow-up at that institution. However, I also question whether or not we can actually safely administer any palliative care if this is pancreatic cancer and I have good reason to believe that the patient is going to be noncompliant, considering his past history. Home Medications Medication Instructions Recorded Confirmed Type Alprazolam [Xanax] 1 mg PO TID 07/08/14 03/21/16 History Citalopram [CeleXA] 40 mg PO DAILY 07/08/14 03/21/16 History Donepezil [Aricept] 10 mg PO BEDTIME 07/08/14 03/21/16 History Albuterol Inhaler [Proventil 2 puff INH Q6H #1 inhaler 07/11/14 03/21/16 Rx Inhaler] Levothyroxine Tab [Synthroid Tab] 112 mcg PO DAILY@0700 03/21/16 03/21/16 History Oxycodone HCl/Acetaminophen 1 each PO BID 03/21/16 03/21/16 History [Percocet 10-325 mg Tablet] amLODIPine [Norvasc] 5 mg PO DAILY 03/21/16 03/21/16 History fentaNYL [Fentanyl 100 mcg/hr 1 patch TRANSDERM Q3DAY 03/21/16 03/21/16 History Patch] Allergies Allergy/AdvReac Type Severity Reaction Status Date / Time No Known Allergies Allergy Verified 07/09/14 07:31 Medical,Surgical,& Family Hx - Medical History Cardio: History of: Hypertension Psychological: History of: Anxiety Disorders HEENT: History of: HEENT Problems (piriform sinus cancer history) Endocrine: History of: Thyroid Disorder No history of: Diabetes Mellitus (NIDDM) Respiratory: History of: COPD, Lung Cancer, Respiratory Problems (recent hospitalization for aspiration pneumonia) Gastrointestinal: History of: GERD Other: History of: Miscellaneous Medical Problems (chronic pain, opioid dependence) - Surgical History Abdominal Surgeries: Surgical HX of: Cholecystectomy (2014) - Family History Family History: Reports;: Family Cancer, Family Diabetes, Family Hypertension - Social History Smoking Status: Former smoker Frequency of Alcohol Use: None Type of Drug Use: None Exam - Constitutional Vitals: Period Temp Pulse Resp BP Sys/Carty Pulse Ox Last 24 Hr 97.2 F-98 F 73-95 15-24 161-209/91-120 92-99 Results - Labs CBC & BMP: 03/22/16 05:45 03/22/16 05:45
--- NOTE | 2016-03-23 09:41 | Pulmonology Progress Note ---
Pulmonary - PN: Subj Interval history: This 70-year-old white male has aspiration pneumonia and is on chronic opiates. Appears that he has multiple malignancies. He underwent bronchoscopy yesterday. Bronchial washings are pending. The Gram stain showed gram- positive cocci. He's currently on Zosyn. I'm going to add Cipro pending the cultures. Patient asked me when he would be able to go home. I told him from a pulmonary standpoint based on his pneumonia it would likely be another 2 days or so. He has additional other problems that need addressing of course. Exam (Progress Note) - Constitutional Vitals: Period Temp Pulse Resp BP Sys/Carty Pulse Ox Last 24 Hr 97.2 F-98 F 73-95 15-24 161-209/91-120 92-99 Exam: Patient is responsive and alert. Vital signs are normal. Pupils react to light. Throat is clear. Neck supple no bruits chest reveals a few scattered rhonchi equal breath sounds he definitely sounds better. Heart normal rate rhythm no murmurs. Abdomen soft nontender no masses. Extremities no clubbing cyanosis or edema. Calves nontender. Results - Labs CBC & BMP: 03/22/16 05:45 03/22/16 05:45 Lab Results: I have reviewed the past 24 hour labs Assessment and Plan (1) COPD with acute exacerbation Status: Acute Assessment and plan: Patient is on antibiotics corticosteroids and bronchodilators. He has a poor cough. 03/23/2016 continuing bronchodilators. Tapering steroids. Current Visit: No (2) Aspiration pneumonia Status: Resolved Assessment and plan: It is likely that he has aspiration pneumonia. We'll plan bronchoscopy later this morning. 03/23/2016 cultures are pending. Has gram-positive cocci on Gram stain. Adjusting antibiotics adding Cipro to the Zosyn for now. Current Visit: No (3) Drug-induced encephalopathy Status: Acute Assessment and plan: Due to opiates. These are being held. His symptoms improved when given Narcan earlier. 03/23/2016 mental status improved. Current Visit: Yes (4) Pancreatic mass Status: Acute Assessment and plan: This remains to be worked up. Suspicious for carcinoma. 03/23/2016 Dr. Long is seen him for this. He has recommended that the patient go back to the [facility] to have the needle biopsy done as previously planned. Current Visit: Yes (5) Opioid dependence Status: Acute Assessment and plan: Defer to primary service. 03/23/2016 pain medicine is seeing the patient. Current Visit: Yes
--- NOTE | 2016-03-23 10:19 | Physician Query Form ---
CLICK EDIT DOCUMENT TO SELECT QUERY ANSWER --> OK --> SIGN Carolyne Kim RN, CCDS Certified Clinical [employer] W) [phone] (f) [phone] [email or web address] PROVIDERS: Make your selection(s) from the choices in EACH section by typing an "x" and enter comments in the comment section. Please use your independent medical judgment in providing your response. This request does not imply that any particular answer is desired or expected. CLINICAL INDICATORS: (Providers should not edit this section) The medical record indicates that the patient presented to the ER by EMS, "does not respond to verbal stimuli", "is nonverbal", "does respond to painful stimuli ", "smells of both urinary and fecal incontinence", "History is limited due to patient's current mental status", and had " Drug-induced encephalopathy". In your clinical opinion can you please clarify if the patient was treated for ____ ____? Based on the above, could you clarify the appropriate diagnosis, if significant , that supports the above abnormalities and additional evaluation, monitoring, and/or treatment rendered: (X ) patient was treated or monitored for accidental overdose on pain medications ( ) patient was not treated or monitored for accidental overdose on pain medications ( ) Other, please specify: ( ) Clinically unable to determine COMMENTS: Use of terms such as suspected, likely, or probable (associated with a specific diagnosis that is being evaluated, monitored, or treated as if it exists) are acceptable and can be restated in the discharge summary if not ruled out. MTDD
[2016-03-23 11:56] LABS: Carcinoembryonic Antigen 1.5 NG/ML (0.0-5.0)
--- NOTE | 2016-03-23 12:15 | Pathology Report from [facility] ---
ACCESSION # : [id number] PATIENT NAME : Misha Hogan ORDERING DR : BRIAN WALKER MD CLINICAL HX: COPD, Aspiration Pneumonia, Pancreatic Mass POST-OP DX: Same SPECIMEN INFO: Washings,Bronchial,EVELYN - 25 ml's greyish white, cloudy. CLASS: II CLASS COMMENTS: Acute, chronic inflammation, squamous metaplasia, reactive bronchial cells.CELL BLOCK: Same CLASS LEGEND: CLASS 0 Material inadequate for diagnosis because of (see comment) CLASS I Absence of atypical or abnormal cells CLASS II Atypical Cytology but no evidence of malignancy CLASS III Cytology suggestive of but not conclusive for malignancy CLASS IV Cytology strongly suggestive of malignancy CLASS V Cytology conclusive for malignancy SERVICE DATE: 03/22/2016 REPORT DATE: 03/23/2016 PATHOLOGIST: Brandon Herrera III, M.D. MTDD
[2016-03-23 13:02] LABS: Cancer Antigen 19-9 3768.6 U/ML (0-37)
[2016-03-23] MEDS: CIPROFLOXACIN INJ 400 MG in PREMIX 1 EACH IV SCH ×2 (13:34→21:32)
--- NOTE | 2016-03-23 14:18 | Hospitalist Progress Note ---
Assessment and Plan (1) Dysphagia causing pulmonary aspiration with swallowing Status: Chronic Assessment and plan: The patient is in the hospital with pneumonia and continues on appropriate antibiotic treatment. It is possible he'll be ready for discharge home on Sunday. She will continue follow-up Jeremy concerning the possibility of pancreatic cancer. Current Visit: No (2) COPD with acute exacerbation Status: Acute Current Visit: No (3) Aspiration pneumonia Status: Resolved Current Visit: No Hospitalist: Subjective Interval history: The patient had therapeutic bronchoscopy. the patient continues for aspiration pneumonia. The patient may have pancreatic tumor which has yet been diagnosed. Exam - Constitutional Vitals: Period Temp Pulse Resp BP Sys/Carty Pulse Ox Last 24 Hr 97.2 F-98 F 73-105 16-24 152-209/88-120 92-99 - Head Head exam: Present: normal inspection - Respiratory Respiratory exam: Present: decreased breath sounds, prolonged expiratory phase - Cardiovascular Cardiovascular exam: Present: regular rate and rhythm Results - Labs CBC & BMP: 03/22/16 05:45 03/22/16 05:45 Lab Results: I have reviewed the past 24 hour labs
[2016-03-23] MEDS: DONEPEZIL 10 MG TABLET PO SCH (21:31)
[2016-03-23] MEDS: ENOXAPARIN 40 MG/0.4 ML SYRINGE SUBCUT SCH (21:31)
[2016-03-24] MEDS: NIFEdipine 10 MG CAPSULE PO PRN (00:26)
[2016-03-24] MEDS: PIPERACILLIN/TAZOBACTAM 3,375 MG in SODIUM CHLORIDE 0.9% 100 ML IV SCH ×3 (01:32→16:05)
[2016-03-24] MEDS: ALBUTEROL/IPRATROPIUM 3 ML NEB RESP TX SCH ×5 (02:55→19:31)
[2016-03-24] MEDS: MORPHINE 2 MG/1 ML SYRINGE IV PRN ×4 (03:24→19:28)
[2016-03-24] MEDS: LEVOTHYROXINE 150 MCG TABLET PO SCH (06:39)
--- NOTE | 2016-03-24 06:51 | Pain Management Progress Note ---
Assessment and Plan (1) Chronic pain Status: Acute Assessment and plan: I agree with the current plan to stop the Duragesic patch and use Percocet twice a day when necessary 03/22 increase Percocet to 3 times a day 03/23 I believe he can be discharged to home and with instructions to not use the Duragesic patch and use Percocet 33-4 times a day only when necessary for pain patient will keep scheduled appointment with me in pain clinic in [place] 03/24 recommend to continue current medications for pain Current Visit: Yes Pain - Subjective Interval history: patient seems to be better and pain is well controlled Exam - Constitutional Vitals: Period Temp Pulse Resp BP Sys/Carty Pulse Ox Last 24 Hr 96.3 F-98.5 F 90-105 16-20 106-196/68-111 93-99 General appearance: normal weight - Head Head exam: Present: normal inspection - Eye Eye exam: Present: EOMI Pupils: Present: MARK - ENT ENT exam: Present: normal exam Ear exam: Present: CHEESH-NA - Neck Neck exam: Present: normal inspection - Respiratory Respiratory exam: Present: decreased breath sounds - Cardiovascular Cardiovascular exam: Present: RRR - GI/Abdominal GI/Abdominal exam: Present: tenderness - Extremities Exam Extremities exam: Present: normal inspection - Back Exam Back exam: Present: vertebral tenderness - Neurological Exam Speech: Present: normal - Skin Skin exam: Present: dry Results - Labs CBC & BMP: 03/22/16 05:45 03/22/16 05:45 Lab Results: I have reviewed the past 24 hour labs
--- NOTE | 2016-03-24 09:42 | Oncology Progress Note ---
Oncology Subjective PN Interval history: The patient's lab work from April 07, 2016 includes a CA-19-9 of 3768.6 and a CEA level of 1.5. This is very suggestive of a cancer forgot malignancy. We still need tissue diagnosis. In addition, see my comments about whether it would even be feasible to treat this patient or not. In addition, if this is unresectable pancreatic cancer, treatment would be purely palliative. It is my understanding that the patient is being discharged today or tomorrow and he will go back to [facility] for follow-up. Once he has been established to have cancer by tissue diagnosis that I will see him and assist in management, with or without chemotherapy. Exam - Constitutional Vitals: Period Temp Pulse Resp BP Sys/Carty Pulse Ox Last 24 Hr 96.3 F-98.5 F 81-104 16-20 106-196/68-111 93-99 Results - Labs CBC & BMP: 03/22/16 05:45 03/22/16 05:45
[2016-03-24] MEDS: CITALOPRAM 40 MG TABLET PO SCH (09:50)
[2016-03-24] MEDS: oxyCODONE/ACETAMINOPHEN 5-325 MG TABLET PO SCH ×2 (09:50→22:01)
[2016-03-24] MEDS: PANTOPRAZOLE 40 MG TABLET PO SCH (09:50)
[2016-03-24] MEDS: methylPREDNISolone SOD SUC 40 MG/1 ML VIAL IV SCH (09:51)
[2016-03-24] MEDS: CIPROFLOXACIN INJ 400 MG in PREMIX 1 EACH IV SCH ×3 (09:51→22:02)
[2016-03-24] MEDS: ALPRAZolam 0.5 MG TABLET PO PRN ×3 (10:03→22:01)
--- NOTE | 2016-03-24 11:57 | Pulmonology Progress Note ---
Pulmonary - PN: Subj Interval history: This 70-year-old white male has aspiration pneumonia and is on chronic opiates. Appears that he has multiple malignancies. He underwent bronchoscopy yesterday. Bronchial washings are pending. The Gram stain showed gram- positive cocci. He's currently on Zosyn. I'm going to add Cipro pending the cultures. Patient asked me when he would be able to go home. I told him from a pulmonary standpoint based on his pneumonia it would likely be another 2 days or so. He has additional other problems that need addressing of course. 03/24/2016 patient has grown Pseudomonas and apparently 2 different gram- positive cocci from the bronchial washings. This would certainly fit with an aspiration calls. The Pseudomonas is sensitive to Cipro. We do not have the sensitivities on the gram-positive cocci and one of them is in heavy growth. Patient is anxious to go home but we need to be sure that oral antibiotics will cover this before he is discharged. I told him I thought he may be able to go tomorrow. Decision will need to be made once all of the cultures and sensitivities are back. Exam (Progress Note) - Constitutional Vitals: Period Temp Pulse Resp BP Sys/Carty Pulse Ox Last 24 Hr 96.3 F-98.5 F 81-104 16-20 106-196/68-111 93-99 Exam: Patient is responsive and alert. Vital signs are normal. Pupils react to light. Throat is clear. Neck supple no bruits chest reveals a few scattered rhonchi equal breath sounds he definitely sounds better. Heart normal rate rhythm no murmurs. Abdomen soft nontender no masses. Extremities no clubbing cyanosis or edema. Calves nontender. He sounds a little better today. Results - Labs CBC & BMP: 03/22/16 05:45 03/22/16 05:45 Lab Results: I have reviewed the past 24 hour labs Assessment and Plan (1) COPD with acute exacerbation Status: Acute Assessment and plan: Patient is on antibiotics corticosteroids and bronchodilators. He has a poor cough. 03/23/2016 continuing bronchodilators. Tapering steroids. 03/24/2016 could be changed to oral prednisone. Probably needs about 5 more days at 40 mg a day of prednisone. Current Visit: No (2) Aspiration pneumonia Status: Resolved Assessment and plan: It is likely that he has aspiration pneumonia. We'll plan bronchoscopy later this morning. 03/23/2016 cultures are pending. Has gram-positive cocci on Gram stain. Adjusting antibiotics adding Cipro to the Zosyn for now. 03/24/2016 growing Pseudomonas and 2 different gram-positive cocci. The final report before deciding on what he can take at home by mouth. It is possible that he may need further IV antibiotics if nothing covers it by mouth. Current Visit: No (3) Drug-induced encephalopathy Status: Acute Assessment and plan: Due to opiates. These are being held. His symptoms improved when given Narcan earlier. 03/23/2016 mental status improved. 03/24/2016 patient is conversant. Current Visit: Yes (4) Pancreatic mass Status: Acute Assessment and plan: This remains to be worked up. Suspicious for carcinoma. 03/23/2016 Dr. Long is seen him for this. He has recommended that the patient go back to the [facility] to have the needle biopsy done as previously planned. 03/24/2016 this will need further follow-up per oncology's recommendation. Current Visit: Yes (5) Opioid dependence Status: Acute Assessment and plan: Defer to primary service. 03/23/2016 pain medicine is seeing the patient. 03/24/[address] Lovelace in pain management. Current Visit: Yes
--- NOTE | 2016-03-24 16:09 | Hospitalist Progress Note ---
Assessment and Plan (1) Dysphagia causing pulmonary aspiration with swallowing Status: Chronic Assessment and plan: The patient is in the hospital with pneumonia and continues on appropriate antibiotic treatment. It is possible he'll be ready for discharge home on Sunday. She will continue follow-up Jeremy concerning the possibility of pancreatic cancer. Current Visit: No (2) COPD with acute exacerbation Status: Acute Current Visit: No (3) Aspiration pneumonia Status: Resolved Current Visit: No Hospitalist: Subjective Interval history: The patient is admitted to the hospital for treatment of aspiration pneumonia. Dr. Roberts as recommended that he stay until tomorrow to continue with treatment via IV antibiotics. The patient's anxious to go home but agrees to stay for the recommended therapy. Exam - Constitutional Vitals: Period Temp Pulse Resp BP Sys/Carty Pulse Ox Last 24 Hr 96.3 F-98.1 F 81-102 16-24 106-196/68-111 93-99 General appearance: no acute distress - Respiratory Respiratory exam: Present: prolonged expiratory phase, other (mild upper airway congestion) - Cardiovascular Cardiovascular exam: Present: regular rate and rhythm Results - Labs CBC & BMP: 03/22/16 05:45 03/22/16 05:45 Lab Results: I have reviewed the past 24 hour labs
[2016-03-24] MEDS: oxyCODONE/ACETAMINOPHEN 5-325 MG TABLET PO PRN (16:20)
[2016-03-24] MEDS: DONEPEZIL 10 MG TABLET PO SCH (22:01)
[2016-03-24] MEDS: ENOXAPARIN 40 MG/0.4 ML SYRINGE SUBCUT SCH (22:01)
[2016-03-25] MEDS: PIPERACILLIN/TAZOBACTAM 3,375 MG in SODIUM CHLORIDE 0.9% 100 ML IV SCH ×2 (00:58→08:23)
[2016-03-25] MEDS: MORPHINE 2 MG/1 ML SYRINGE IV PRN ×2 (00:58→05:38)
[2016-03-25] MEDS: ALBUTEROL/IPRATROPIUM 3 ML NEB RESP TX SCH ×2 (05:05→07:43)
[2016-03-25] MEDS: ALPRAZolam 0.5 MG TABLET PO PRN (05:39)
[2016-03-25] MEDS: LEVOTHYROXINE 150 MCG TABLET PO SCH (06:29)
[2016-03-25] MEDS: oxyCODONE/ACETAMINOPHEN 5-325 MG TABLET PO SCH (08:22)
[2016-03-25] MEDS: CITALOPRAM 40 MG TABLET PO SCH (08:22)
[2016-03-25] MEDS: PANTOPRAZOLE 40 MG TABLET PO SCH (08:22)
--- NOTE | 2016-03-25 08:36 | Discharge Summary ---
Hospital Course - Hospital Course Hospital Course: The patient was admitted to hospital with shortness of breath and cough. He was diagnosed with aspiration pneumonia and treated with Zosyn, steroids, and beta agonist nebulized breathing therapies. The patient had bronchoscopy and was seen to have some mass in the piriform sinuses were he has been previously treated for carcinoma. The patient has a history of lung cancer. The patient also has a pancreatic mass which is pending evaluation at [facility]. During the patient's stay, we had consultation with Dr. Benedict for oncology. Laboratory work obtained showed CA 19 9 of 3768 and CEA of 1.5 suggestive of malignancy. The patient's breathing has improved and he was treated for pneumonia. He is now ready for discharge home. On the date of discharge chest is clear, abdomen soft, extremities without edema. The patient will follow-up with his primary care physician in [place]. The patient will take Ceftin oral antibiotic as outpatient to finish therapy of the pneumonia. - Time spent with patient Time with patient DS: Greater than 30 minutes Diagnosis - Discharge Diagnosis (1) Dysphagia causing pulmonary aspiration with swallowing Status: Chronic (2) COPD with acute exacerbation Status: Resolved (3) Aspiration pneumonia Status: Resolved Discharge Plan - Discharge Data Disposition: Disch To Home/Self Care Condition at Discharge: Stable Discharge Diet: advance to your usual diet Activity: resume usual activities as tolerated - Discharge Medications New Levothyroxine Tab [Synthroid Tab] 150 mcg PO DAILY@0700 tablet oxyCODONE/ACETAMINOPHEN 5-325 [Percocet 5-325] 2 tablet PO BID tablet Ciprofloxacin Tab [Cipro Tab] 250 mg PO BID #14 tablet Continue Donepezil [Aricept] 10 mg PO BEDTIME Citalopram [CeleXA] 40 mg PO DAILY Alprazolam [Xanax] 1 mg PO TID Albuterol Inhaler [Proventil Inhaler] 2 puff INH Q6H #1 inhaler fentaNYL [Fentanyl 100 mcg/hr Patch] 1 patch TRANSDERM Q3DAY Levothyroxine Tab [Synthroid Tab] 112 mcg PO DAILY@0700 Oxycodone HCl/Acetaminophen [Percocet 10-325 mg Tablet] 1 each PO BID amLODIPine [Norvasc] 5 mg PO DAILY - Follow Up or Referral Follow Up: Your,PCP [Other] - 5 Days - Forms/Instructions Exam - Constitutional Vitals: Period Temp Pulse Resp BP Sys/Carty Pulse Ox Last 24 Hr 96.8 F-98.1 F 83-101 16-24 119-175/77-103 91-100 Discharge Results Procedures and tests throughout hospitalization: Pending Orders 03/22/16 AFB Culture/Smears Routine Bronchial Washings C & Gram St Routine Fungal Culture w/ Prep Routine 03/22/16 08:24 Cytology Request Routine Labs on day of discharge: Labs from last 24 hours 03/25/16 08:12 POC Glucose 194 H Preliminary micro results at discharge 03/22/16 Unknown Bronchial Washings Culture - Preliminary Bronchial Washings Pseudomonas aeruginosa Gram Positive Cocci Microstrep plus panel 1 Gram Positive Cocci#2 DS: Provider Date of admission: 03/20/16 22:36 Primary care physician: . No PCP Attending physician on admission: Prabhu Nevarez DO Consults: 03/20/16 22:46 Consult to Physician [CONS] Routine Comment: probable aspiration pneumonia Consulting Provider: Josafat Roberts Consult to Specialist Group: Pulmonology When should Consulting Provider be notified: In am 03/20/16 23:33 Consult to Pharmacy [CONS] Routine Reason for Pharmacy Consult: Adjust Meds Renal Funct 03/22/16 09:12 Consult to Physician [CONS] Routine Comment: Dr. Long has seen in the past. ?pancreatic Ca Consulting Provider: Leonidas Long Consult to Specialist Group: Oncology When should Consulting Provider be notified: Now Person Notified: SHARRI Date Notified: 03/22/16 Time Notified: 11:00 Discharging clinician: Waldo Ledesma MD
--- NOTE | 2016-03-25 09:15 | Pulmonology Progress Note ---
Pulmonary - PN: Subj Interval history: Patient is 70-year-old white man that came in with aspiration pneumonia. He apparently has pancreatic cancer and takes a lot of narcotics. He is doing better now and his chest congestion has improved. He is not short of breath or having any fever. He says he wants to try to go home today. Exam (Progress Note) - Constitutional Vitals: Period Temp Pulse Resp BP Sys/Carty Pulse Ox Last 24 Hr 96.8 F-98.1 F 79-101 16-24 119-175/77-103 91-100 General appearance: no acute distress, under weight - Head Head exam: Present: normal inspection - Eye Eye exam: Present: EOMI. Absent: scleral icterus Pupils: Present: MARK - ENT ENT exam: Present: normal exam - Neck Neck exam: Present: normal inspection. Absent: lymphadenopathy, thyromegaly - Respiratory Respiratory exam: Present: prolonged expiratory phase, rhonchi - Cardiovascular Cardiovascular exam: Present: regular rate and rhythm. Absent: gallop, systolic murmur - GI/Abdominal GI/Abdominal exam: Present: normal bowel sounds, soft. Absent: tenderness - Extremities Exam Extremities exam: Absent: calf tenderness, edema - Neurological Exam Neurological exam: Present: alert, oriented X3 - Psychiatric Psychiatric exam: Present: depressed - Skin Skin exam: Present: warm, dry Results - Labs CBC & BMP: 03/22/16 05:45 03/22/16 05:45 Assessment and Plan (1) Aspiration pneumonia Status: Resolved Assessment and plan: The patient has mild aspiration pneumonia and is doing much better now. He will go home on oral antibiotics. Current Visit: No (2) COPD with acute exacerbation Status: Acute Assessment and plan: The patient was having some respiratory difficulties several days ago but is better now. He seems to be moving air okay and is comfortable. 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 Current Visit: Yes (4) Opioid dependence Status: Acute Assessment and plan: The patient is chronically on opioids and will be monitored. Current Visit: Yes (5) Hypertension Status: Chronic Assessment and plan: He is hemodynamically stable at the present time. Current Visit: No Specialty Discharge - Follow Up or Referrals Follow up with: Your,PCP [Other] - 5 Days
[2016-03-25 10:23] VITALS: BP 175/92
== END 2016-03-25 10:23 | disposition home or self-care (01) | DRG 917 ==
LOC: EDBD → EDUNIT# → N.ED 18:29 → N.EDINP 22:35 → SUATTDRO 22:36 → N.2E 23:18
PROVIDERS: ADMIT Internal Medicine; ATTEND Internal Medicine